=== PATIENT | female | born 1950 | race Caucasian/White ===

== ENCOUNTER 2017-01-17 12:23 | Emergency (ER) | payer MEDICARE, OTHER ==
[~2017-01-17] VITALS: Ht 172.7 cm; Wt 86.2 kg
[2017-01-17] MEDS ORDERED: SYNTHROID50 MCG PO (12:52)
[2017-01-17] MEDS ORDERED: TRAMADOL HCL50 MG PO (12:52)
[2017-01-17] MEDS ORDERED: OLMESARTAN-HCT1 EACH PO (12:53)
[2017-01-17] MEDS ORDERED: BAYER CHEWABLE81 MG PO (12:56)
--- NOTE | 2017-01-17 17:18 | EKG ---
[facility] [address] [facility] [place] [address] Signed Sinus tachycardia T wave abnormality, consider anterior ischemia Abnormal ECG No previous ECGs available Confirmed by JALEN MONCADA MD ([id number]) on 01/17/2017 5:18:10 PM Electronically Signed By: JALEN MONCADA MD 01/17/17 1718 PATIENT NAME: BRANDT SPIVEY Electrocardiogram DATE OF : 48 PHYSICIAN: JALEN MONCADA MD REPORT #: [id number] REPORT IS CONFIDENTIAL AND NOT TO BE RELEASED WITHOUT AUTHORIZATION
--- NOTE | 2017-01-17 17:18 | EKG ---
[facility] [address] [facility] [place] [address] Signed Normal sinus rhythm with sinus arrhythmia T wave abnormality, consider anterior ischemia Prolonged QT Abnormal ECG When compared with ECG of 17-JAN-2017 12:47, (Unconfirmed) No significant change was found Confirmed by JALEN MONCADA MD ([id number]) on 01/17/2017 5:18:16 PM Electronically Signed By: JALEN MONCADA MD 01/17/17 1718 PATIENT NAME: BRANDT SPIVEY Electrocardiogram DATE OF : 48 PHYSICIAN: JALEN MONCADA MD REPORT #: [id number] REPORT IS CONFIDENTIAL AND NOT TO BE RELEASED WITHOUT AUTHORIZATION
== END 2017-01-17 16:17 | disposition home or self-care (01) ==
LOC: ED 12:23
DX: R00.0 Tachycardia, unspecified (principal); L03.116 Cellulitis of left lower limb; L03.115 Cellulitis of right lower limb; E03.9 Hypothyroidism, unspecified; R79.1 Abnormal coagulation profile; R94.31 Abnormal electrocardiogram [ECG] [EKG]; R22.43 Localized swelling, mass and lump, lower limb, bilateral; I10 Essential (primary) hypertension; M85.80 Other specified disorders of bone density and structure, unspecified site; E78.5 Hyperlipidemia, unspecified; Z79.899 Other long term (current) drug therapy; Z79.82 Long term (current) use of aspirin; Z88.8 Allergy status to other drugs, medicaments and biological substances
CPT/HCPCS: 71020; 80053; 83735; 84484; 85025; 85379; 93005; 93010; 93970; 96360; 99284; J7030